=== PATIENT | male | born 1960 | race Caucasian/White ===

== ENCOUNTER → 2022-10-15 | Outpatient (CLI) | payer OTHER ==
--- NOTE | 2022-10-15 15:38 | XR ---
EXAMINATION TYPE: XR shoulder limited RT DATE OF EXAM: 10/15/2022 12:05 PM INDICATION: Patient age:Male; 62 years old; Reason for study: M25.511 Pain Rotator cuff injury Right shoulder; COMPARISON: None TECHNIQUE: The right shoulder was examined in AP, internally rotated and scapular Y projections. FINDINGS: Mild degeneration of the common clavicular and glenohumeral joint. No evidence of acute osseous pathology, joint dislocation, or soft tissue swelling. The remaining por tions of the visualized chest are unremarkable. IMPRESSION: 1. No acute osseous pathology. 2. Mild right shoulder osteoarthrosis. Consider MRI for further evaluation.
== END | disposition home or self-care (01) ==
LOC: RADXRMAIN 11:41
PROVIDERS: ATTEND Family Medicine
DX: M19.011 Primary osteoarthritis, right shoulder (principal); S46.001A Unspecified injury of muscle(s) and tendon(s) of the rotator cuff of right shoulder, initial encounter; X58.XXXA Exposure to other specified factors, initial encounter